=== PATIENT | male | born 2000 | race African-American/Black ===

== ENCOUNTER 2021-05-13 21:11 | Emergency (ER) | payer OTHER ==
[2021-05-13] MEDS ORDERED: Lidocaine 1% (PF) 30 ML VIAL ONE ×2 (22:22→22:25)
== END 2021-05-13 23:05 | disposition home or self-care (01) ==
LOC: ERS 21:11
DX: R55 Syncope and collapse (principal); S01.81XA Laceration without foreign body of other part of head, initial encounter; W19.XXXA Unspecified fall, initial encounter
CPT/HCPCS: 12013; 70450; 70486; 72125; 93005; J2001